=== PATIENT | male | born 1960 | race Caucasian/White ===

== ENCOUNTER 2017-07-25 12:29 | Outpatient (CLI) | payer OTHER ==
--- NOTE | 2017-07-25 14:09 | RAD ---
EXAM: TWO VIEWS LUMBAR SPINE: COMPARISON: 06/12/17. FINDINGS: Two views lumbar spine redemonstrate a unilateral left-sided transpedicular screw at L5 and S1. L5- S1 disk prosthesis. 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 No significant spondylolisthesis. There is no significant change in terms of the disk space height. No fracture. IMPRESSION: Uncomplicated left transpedicular fusion hardware at L5 and S1. POS: [facility]
== END 2017-07-25 12:30 | disposition home or self-care (01) ==
LOC: TBSIIMAG 12:29
PROVIDERS: ATTEND Neurological Surgery
DX: M51.36 Other intervertebral disc degeneration, lumbar region (principal); M43.27 Fusion of spine, lumbosacral region
CPT/HCPCS: 72100